=== PATIENT | male | born 1940 | race Caucasian/White ===

== ENCOUNTER 2018-05-12 10:16 | Inpatient (IN) | payer MEDICARE, BC ==
[~2018-05-12] VITALS: Ht 188 cm; Wt 76.3 kg
[2018-07-12] VITALS (11 sets, daily range): BP systolic 102–132; BP diastolic 51–92; PULSE 48–109; TEMP 65–98.2
[2018-07-12] MEDS ORDERED: COREG 25MG25 MG/TAB PO (00:41)
[2018-07-12] MEDS ORDERED: PRAVACHOL 40MG40 MG PO (00:45)
[2018-07-12] MEDS ORDERED: COUMADIN 5MG5 MG/TAB PO ×2 (00:46→00:47)
[2018-07-12] MEDS ORDERED: VOLTAREN GEL 1%1 TU TP (00:48)
[2018-07-12] MEDS ORDERED: FERROUS SU325 MG/TAB PO (00:49)
[2018-07-12] MEDS ORDERED: FOLIC ACID0.4 MG PO (00:50)
[2018-07-12] MEDS ORDERED: VITAMIN C500 MG PO (00:51)
[2018-07-12] MEDS ORDERED: CLARITIN 1010 MG/TAB PO (05:30)
[2018-07-12] MEDS ORDERED: LOVENOX 8080 MG/0.8 SQ (05:31)
[2018-07-13 01:22] VITALS: BP 100/66; PULSE 109; TEMP 98.1
[2018-07-13 05:39] VITALS: BP 111/67; PULSE 83; TEMP 98.1
[2018-07-13 05:42] VITALS: BP 147/68; PULSE 84; TEMP 98.2
[2018-07-13 06:14] LABS: HEMATOCRIT 38.4 % (42.0-52.0); HEMOGLOBIN 12.6 g/dl (13.5-18.0)
[2018-07-13] MEDS ORDERED: NORCO 325 MG-7.1 TAB PO (07:32)
[2018-07-13 08:36] VITALS: BP 100/56; PULSE 92; TEMP 97.6
== END 2018-07-13 10:00 | disposition home or self-care (01) | DRG 469 ==
LOC: JCC 07-12 05:05
PROVIDERS: Orthopaedic Surgery; Physician Assistant
PROC: 0SGH04Z Fusion of Right Tarsal Joint with Internal Fixation Device, Open Approach (ICD-10-PCS; 2018-07-12)
PROC: 0SRF0JA Replacement of Right Ankle Joint with Synthetic Substitute, Uncemented, Open Approach (ICD-10-PCS; principal; 2018-07-12 07:30)
DX: M19.071 Primary osteoarthritis, right ankle and foot (principal); I10 Essential (primary) hypertension; E78.00 Pure hypercholesterolemia, unspecified; I48.91 Unspecified atrial fibrillation; Z87.891 Personal history of nicotine dependence
CPT/HCPCS: A9284; C1713; C1776; J0690; J1100; J2250; J2370; J2405; J2704; J3010; J7050; J7120